=== PATIENT | female | born 1995 | race Two or more races ===

== ENCOUNTER 2022-06-02 23:17 | Emergency (ER) | payer SELFPAY ==
[~2022-06-02] VITALS: Ht 157.5 cm; Wt 54.5 kg
[2022-06-02 23:21] VITALS: BP 115/59
[2022-06-02] MEDS ORDERED: SODIUM CHLORIDE 0.9% 1,000 ML IV ONE (23:45)
[2022-06-02 23:56] LABS: BASOPHILS % 0.4 % (0.0-2.0); EOSINOPHILS % 0.5 % (0.0-5.0); HEMATOCRIT. 39.5 % (36.0-48.0); HEMOGLOBIN. 12.5 g/dL (12.0-16.0); LYMPHOCYTES % 12.2 % (20.0-50.0); MEAN CORPUSCULAR HEMOGLOBIN 29.5 pg (28.0-32.0); MEAN CORPUSCULAR VOLUME 93.4 fL (81.0-99.0); MEAN PLATELET VOLUME 8.3 fl (7.4-10.4); MONOCYTES % 3.9 % (2.0-8.0); PLATELET 261 x1000/uL (130-400); RED BLOOD CELL COUNT 4.23 mill/uL (4.2-5.4); RED CELL DISTRIBUTION WIDTH 13.8 % (11.6-14.6)
[2022-06-03 00:02] LABS: CHLORIDE 107 mEq/L (98-107)
[2022-06-03 00:11] LABS: ETHANOL BLOOD 190 mg/dL
[2022-06-03] MEDS ORDERED: POTASSIUM CHLORIDE 20MEQ TABLET SR PO NR (01:30)
== END 2022-06-03 01:32 | disposition left against medical advice (07) ==
LOC: ER 23:17
DX: F10.129 Alcohol abuse with intoxication, unspecified (principal); Y90.8 Blood alcohol level of 240 mg/100 ml or more; E87.6 Hypokalemia; R94.31 Abnormal electrocardiogram [ECG] [EKG]; I95.9 Hypotension, unspecified
CPT/HCPCS: 36415; 80053; 80307; 80320; 80329; 82962; 85025; 96360; 99283; J7030; G0480